=== PATIENT | female | born 1960 | race Caucasian/White ===

== ENCOUNTER → 2016-12-22 | Outpatient (CLI) | payer OTHER ==
--- NOTE | 2016-12-26 11:41 | MAM ---
EXAM DESCRIPTION: 3D Screening BILATERAL : digital mammography. CLINICAL HISTORY: 56 yearsFemaleSCREENING . No complaints. No family history of breast cancer. Postmenopausal. Currently on HRT. Bilateral breast augmentation COMPARISON: 2-D digital screening bilateral study 01/28/2015. No prior reports available. TECHNIQUE: Bilateral digital screening. CC and MLO projection full-field, 2-D images. Bilateral Topher implant displacement images, CC and MLO full-field projections, 3-D tomosynthesis. CAD not utilized. FINDINGS: The breast parenchymal density pattern is: Heterogeneously dense breast tissue, which may obscure small masses. No skin thickening or nipple retraction bilaterally. Bilateral saline subpectoral implants. Capsule Borders appear intact where seen. Bilateral solitary microcalcifications. No focal, stellate mass or density no focal asymmetry, and no suspicious microcalcifications bilaterally Stable mammograms compared to prior study, taking into account differences in mammographic technique. IMPRESSION: BI-RADS CATEGORY: 2 - BENIGN FINDINGS. FOLLOW UP: Routine digital bilateral screening, one year interval from November 2016. Written communication explaining the IMPRESSION and follow-up, will be mailed to the patient and referring health care provider. According to the [employer], yearly mammograms are recommended starting at age 40 and continuing as long as a woman is in good health. Any breast change noted on a breast self-exam should be reported promptly to the patient's healthcare provider. Breast MRI is recommended for women with an approximately 20-25% or greater lifetime risk of breast cancer, including women with a strong family history of breast or ovarian cancer and women who have been treated for Hodgkin's disease. A negative mammographic report should not delay tissue diagnosis in patients with significant clinical history or physical findings. Extremely dense breast tissue limits the sensitivity of digital mammography. Electronically signed by: Jimy Murrieta MD 12/26/2016 11:40 AM CDT
== END | disposition home or self-care (01) ==
LOC: MAMMO 14:23
PROVIDERS: ATTEND Family Medicine
DX: Z12.31 Encounter for screening mammogram for malignant neoplasm of breast (principal)
CPT/HCPCS: 77063; G0202

== ENCOUNTER → 2018-01-31 | Outpatient (CLI) | payer BC ==
--- NOTE | 2018-02-05 16:06 | MAM ---
EXAM DESCRIPTION: 3D Screening BILATERAL : Digital Mammography. CLINICAL HISTORY: 57 years Female ANNUAL SCREENING . No complaints. No personal or family history of breast cancer. Childbirth. Postmenopausal. HRT currently. Bilateral breast augmentation. Lifetime risk of developing breast cancer (Tyrer-Cuzick model)(%): 9.6. COMPARISON: Bilateral screening digital breast tomosynthesis 12/22/2016. TECHNIQUE: Bilateral CC and MLO projection full-field images, digital tomosynthesis mammographic technique. Bilateral digital 2-D full-field MLO images. CAD not available for tomosynthesis or 2-D images. FINDINGS: The breast parenchymal density pattern is: Heterogeneously dense breast tissue, which may obscure small masses. No skin thickening or nipple retraction. Bilateral solitary microcalcifications. Bilateral subpectoral saline implants. Capsules appear intact where seen. No new focal, stellate mass or density, focal asymmetry , and no suspicious microcalcifications bilaterally. Stable mammograms compared to prior study. IMPRESSION: Benign exam. BIRAD CATEGORY: 2 BENIGN FINDINGS. RECOMMENDATIONS: FOLLOW UP: Routine digital bilateral mammographic screening, one year interval from January 2018. Written communication explaining the IMPRESSION and follow-up, will be mailed to the patient and referring health care provider. According to the [employer], yearly mammograms are recommended starting at age 40 and continuing as long as a woman is in good health. Any breast change noted on a breast self-exam should be reported promptly to the patient's healthcare provider. Breast MRI is recommended for women with an approximately 20-25% or greater lifetime risk of breast cancer, including women with a strong family history of breast or ovarian cancer and women who have been treated for Hodgkin's disease. A negative mammographic report should not delay tissue diagnosis in patients with significant clinical history or physical findings. Extremely dense breast tissue limits the sensitivity of digital mammography. Electronically signed by: Jimy Murrieta MD 02/05/2018 4:05 PM [employer]
== END ==
LOC: MAMMO 09:30
PROVIDERS: ATTEND Nurse Practitioner Family
DX: Z12.31 Encounter for screening mammogram for malignant neoplasm of breast (principal)

== ENCOUNTER → 2018-03-22 | Outpatient (CLI) | payer BC ==
--- NOTE | 2018-03-22 09:27 | RAD ---
EXAM DESCRIPTION: Pelvis CLINICAL HISTORY: HIP PAIN LEFT COMPARISON: None. TECHNIQUE: 4 views FINDINGS: I see no bone joint or soft tissue abnormality. IMPRESSION: Normal left knee. Electronically signed by: Aguila Friedman MD 03/22/2018 9:26 AM [facility]
--- NOTE | 2018-03-23 07:05 | RAD ---
EXAM DESCRIPTION: Pelvis CLINICAL HISTORY: HIP PAIN LEFT COMPARISON: None. TECHNIQUE: 4 views FINDINGS: I see no bone joint or soft tissue abnormality. IMPRESSION: Normal left knee. Electronically signed by: Aguila Friedman MD 03/22/2018 9:26 AM [facility]
--- NOTE | 2018-03-23 07:05 | RAD ---
EXAM DESCRIPTION: Pelvis CLINICAL HISTORY: HIP PAIN LEFT COMPARISON: None. TECHNIQUE: 4 views FINDINGS: I see no bone joint or soft tissue abnormality. IMPRESSION: Normal left knee. Electronically signed by: Aguila Friedman MD 03/22/2018 9:26 AM [facility]
== END ==
LOC: RAD 08:19
PROVIDERS: ATTEND Orthopaedic Surgery
DX: M25.562 Pain in left knee (principal); M25.552 Pain in left hip

== ENCOUNTER 2018-07-28 14:00 | Emergency (ER) | payer BC ==
[2018-07-28] MEDS ORDERED: CHLORHEXIDINE GLUCONATE 4 % 15 ML UD TOP ONE (14:40)
[2018-07-28] MEDS ORDERED: LIDOCAINE 1% 10 ML VIAL INJ ONE (14:40)
[2018-07-28] MEDS: TETANUS,DIPHTHERIA,PERTUSSIS 1 EA SYG IM ONE (14:59)
--- NOTE | 2018-07-28 15:01 | ED.PDOC ---
History of Present Illness - General Chief Complaint: Laceration Stated Complaint: Fell off swimming float an hit head on pool edge Time Seen by Provider: 07/28/18 14:35 Source: patient Exam Limitations: no limitations - History of Present Illness Initial Comments: SHE JUMPED INTO A FLOAT ON THE POOL AND BOUNCED AND HIT HER HEAD ON THE SIDE OF THE POOL. NO LOC AND ON NO BLOOD THINNERS. NOS SUSTAINS A 3 CM LAC TO THE OCCIPUT. DENIES ANY NECK PAIN. Timing/Duration: 1 hour Improving Factors: nothing Worsening Factors: nothing Associated Symptoms: denies symptoms Allergies/Adverse Reactions: Allergies Morphine Allergy (Verified 07/28/18 14:28) Penicillins Allergy (Verified 07/28/18 14:28) Home Medications: Ambulatory Orders Acyclovir [Zovirax] 800 mg PO DAILY 07/28/18 Lisinopril 10 mg PO DAILY 07/28/18 Pregabalin [Lyrica] 50 mg PO DAILY 07/28/18 Review of Systems - Review of Systems Constitutional: States: no symptoms reported EENTM: States: no symptoms reported Respiratory: States: no symptoms reported Cardiology: States: no symptoms reported Gastrointestinal/Abdominal: States: no symptoms reported Genitourinary: States: no symptoms reported, discharge Skin: States: other - LACERATION Neurological: States: no symptoms reported Endocrine: States: no symptoms reported Hematologic/Lymphatic: States: no symptoms reported Past Medical History (General) - Patient Medical History Hx Stroke: No Hx of COPD: No Hx Congestive Heart Failure: No Hx Hypertension: Yes Hx Diabetes: No Hx Cancer: No Surgical History: other - Vaccination History Hx Tetanus, Diphtheria Vaccination: No Hx Influenza Vaccination: Yes Hx Pneumococcal Vaccination: No - Social History Hx Tobacco Use: Yes Hx Alcohol Use: Yes Hx Substance Use: No Hx Substance Use Treatment: No Hx Depression: No - Female History Patient is a Female of Child Bearing Age (10 -59 yrs old): No Patient : No Family Medical History - Family History Mother Living Status: Still Living Hx Cardiac Disease: Yes Physical Exam - Physical Exam General Appearance: Well Developed, Well Groomed, Well Hydrated Eye Exam: bilateral normal Ears, Nose, Throat: hearing grossly normal, normal ENT inspection Neck: non-tender, full range of motion, supple Respiratory: chest non-tender, lungs clear, normal breath sounds, no respiratory distress, no accessory muscle use Cardiovascular/Chest: normal peripheral pulses, regular rate, rhythm, no edema, no gallop, no JVD Peripheral Pulses: radial,right: 2+ Gastrointestinal/Abdominal: normal bowel sounds Rectal Exam: deferred Back Exam: normal inspection Neurologic: ham stringer II-XII nml as tested, no motor/sensory deficits Skin Exam: other - THREE CM LAC TO THE OCCIPUT. Procedures - Laceration/Wound Repair Head Wound Length (cm): 3 Wound's Depth, Shape: linear Wound Explored: clean Irrigated w/ Saline (cc's): 50 Betadine Prep?: No - HIBICLENS Anesthesia: 1% Lidocaine Volume Anesthetic (cc's): 6 Wound Debrided: minimal Wound Repaired With: dena Number of Sutures: 6 - DENA Layer Closure?: No Departure - Departure Clinical Impression: Occipital scalp laceration Qualifiers: Encounter type: initial encounter Qualified Code(s): S01.01XA - Laceration without foreign body of scalp, initial encounter Time of Disposition: 15:07 Disposition: Discharge to Home or Self Care Condition: Good Departure Forms: ED Discharge - Pt. Copy, Patient Portal Self Enrollment Instructions: DI for Laceration Repair Diet: resume usual diet Referrals: Vj Perkins MD [Primary Care Provider] - 1-2 Weeks Home Medications: Ambulatory Orders Acyclovir [Zovirax] 800 mg PO DAILY 07/28/18 Lisinopril 10 mg PO DAILY 07/28/18 Pregabalin [Lyrica] 50 mg PO DAILY 07/28/18 Additional Instructions: STAPLE REMOVAL 8 DAYS
[2018-07-28 15:19] VITALS: BP 137/88; TEMP 96.4; O2SAT 99
== END 2018-07-28 15:19 | disposition home or self-care (01) ==
LOC: ER 14:00
DX: S01.01XA Laceration without foreign body of scalp, initial encounter (principal); I10 Essential (primary) hypertension; Z87.891 Personal history of nicotine dependence; Z79.899 Other long term (current) drug therapy; Z88.5 Allergy status to narcotic agent; Z88.0 Allergy status to penicillin; W22.09XA Striking against other stationary object, initial encounter; Y92.34 Swimming pool (public) as the place of occurrence of the external cause